=== PATIENT | male | born 1970 | race Hispanic/Latino ===

== ENCOUNTER 2018-11-17 09:45 | Outpatient (CLI) | payer OTHER ==
--- NOTE | 2018-11-17 11:50 | Magnetic Resonance Report ---
MRI CERVICAL SPINE WITHOUT CONTRAST INDICATION / CLINICAL INFORMATION: Cervical radiculopathy, right hand numbness. TECHNIQUE: Multisequence, multiplanar images of the cervical spine were obtained. COMPARISON: None available. FINDINGS: CRANIOCERVICAL JUNCTION:No significant abnormality. ALIGNMENT: No significant abnormality. VERTEBRAE:There is developmental fusion with decreased AP dimension of the C4 and C5 vertebral bodies . Remaining vertebral body heights appear normal. VISUALIZED SPINAL CORD: No cord signal abnormality. 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 No significant canal sten osis. C3-4: Degenerative disc disease with broad-based disc osteophyte complex causing mild canal stenosis without main coronary impingement. Moderate right and mild left neural foraminal narrowing secondary to uncovertebral DJD. C4-5: Developmentally fused without canal or foraminal narrowing. C5-6: Broad-based disc protrusion causing mild canal stenosis without cord impingement. Mild left verito ral foraminal narrowing secondary to uncovertebral DJD. C6-7: No significant disc abnormality, spinal canal stenosis, or neural foraminal stenosis. C7-T1: No significant disc abnormality, spinal canal stenosis, or neural foraminal stenosis. PARASPINAL SOFT TISSUES: No significant abnormality. ADDITIONAL FINDINGS: None. IMPRESSION: 1. 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 2. Degenerative findings at C2-3, C3-4, and C5-6 as described including mild canal stenosis at C3-4 a nd C5-6 without any cord impingement. 3. Multifocal mild to moderate neural foraminal narrowing, most significant on the right at C3-4 (thi s would result in impingement on the exiting right C4 nerve root). Signer Name: John Green MD Signed: 11/17/2018 11:46 AM Workstation Name: [id number]
== END 2018-11-17 09:46 | disposition home or self-care (01) ==
LOC: MRI 09:45
PROVIDERS: ATTEND Internal Medicine
DX: M48.02 Spinal stenosis, cervical region (principal); M43.22 Fusion of spine, cervical region; M50.31 Other cervical disc degeneration, high cervical region; M50.222 Other cervical disc displacement at C5-C6 level
CPT/HCPCS: 72141